=== PATIENT | female | born 1965 | race Caucasian/White ===

== ENCOUNTER 2017-11-26 09:30 | Outpatient (CLI) | payer OTHER | END 2017-11-26 14:38 | disposition home or self-care (01) | LOC: MAMO-SONO 09:30 | DX: Z12.31 Encounter for screening mammogram for malignant neoplasm of breast (principal); N92.0 Excessive and frequent menstruation with regular cycle; N84.0 Polyp of corpus uteri ==

== ENCOUNTER 2019-09-28 11:45 | Inpatient (IN) | payer OTHER ==
[~2019-09-28] VITALS: Ht 157.5 cm; Wt 72.6 kg
[~2019-09-28 11:45] MED LIST: CODE1TAB37 PO; DOXYCYCLINE HY100 MG PO
[2019-09-28] MEDS ORDERED: COZAAR100 MG PO (13:45)
[2019-10-07] MEDS ORDERED: Tylenol #3 PO (09:07)
== END 2019-10-07 12:32 | disposition home or self-care (01) | DRG 743 ==
LOC: O/R 11:45 → OB/GYN 10-06 07:50 → SURH 10-06 11:45 → OB/GYN 10-07 12:32
PROVIDERS: ADMIT Obstetrics & Gynecology
PROC: 0UB27ZZ Excision of Bilateral Ovaries, Via Natural or Artificial Opening (ICD-10-PCS; 2019-10-06)
PROC: 0UQF7ZZ Repair Cul-de-sac, Via Natural or Artificial Opening (ICD-10-PCS; 2019-10-06)
PROC: 0USG7ZZ Reposition Vagina, Via Natural or Artificial Opening (ICD-10-PCS; 2019-10-06)
PROC: 0TJB8ZZ Inspection of Bladder, Via Natural or Artificial Opening Endoscopic (ICD-10-PCS; 2019-10-06)
PROC: 0UT97ZZ Resection of Uterus, Via Natural or Artificial Opening (ICD-10-PCS; principal; 2019-10-06 13:15)
DX: D25.1 Intramural leiomyoma of uterus (principal); N83.8 Other noninflammatory disorders of ovary, fallopian tube and broad ligament; N93.8 Other specified abnormal uterine and vaginal bleeding; N81.11 Cystocele, midline; N84.0 Polyp of corpus uteri; I10 Essential (primary) hypertension